=== PATIENT | female | born 1985 | race Hispanic/Latino ===

== ENCOUNTER 2016-09-21 21:47 | Outpatient (CLI) | payer OTHER ==
[~2016-09-21] VITALS: Ht 162.6 cm; Wt 107.2 kg
[~2016-09-21 21:47] MED LIST: FLAG500T PO
[2016-09-21 21:54] VITALS: BP 121/63
[2016-09-22] MEDS ORDERED: PRENTAB9 PO (01:00)
== END 2016-09-21 23:49 | disposition home or self-care (01) ==
LOC: M LDO 21:47
PROVIDERS: ATTEND Specialist
DX: O98.513 Other viral diseases complicating pregnancy, third trimester (principal); Z3A.32 32 weeks gestation of pregnancy

== ENCOUNTER 2016-09-29 13:07 | Outpatient (CLI) | payer OTHER ==
[~2016-09-29] VITALS: Ht 162.6 cm; Wt 104.0 kg
[~2016-09-29 13:07] MED LIST changes: +PRENTAB9 PO
[2016-09-29 13:18] VITALS: BP 89/50
[2016-09-29 13:25] VITALS: BP 108/66
[2016-09-29] MEDS ORDERED: LACTATED RINGER'S 1000 ML IV STA (13:35)
[2016-09-29] MEDS ORDERED: LR 1,000 ML IV SCH (13:35)
[2016-09-29] MEDS ORDERED: PROMETHAZINE INJ 25 MG/ML VIAL (J2550) IV PRN (13:45)
[2016-09-29 14:03] VITALS: BP 107/57
[2016-09-29 15:52] VITALS: BP 97/50
[2016-09-29 17:27] VITALS: BP 101/48
== END 2016-09-29 17:50 | disposition home or self-care (01) ==
LOC: M LDO 13:07
PROVIDERS: ATTEND Obstetrics & Gynecology
DX: O21.8 Other vomiting complicating pregnancy (principal); Z3A.32 32 weeks gestation of pregnancy

== ENCOUNTER 2016-12-25 21:54 | Emergency (ER) | payer OTHER ==
[~2016-12-25] VITALS: Ht 162.6 cm; Wt 98.9 kg
[2016-12-25 21:55] VITALS: BP 110/65
[2016-12-25] MEDS ORDERED: TYLE325T5 PO (22:07)
== END 2016-12-25 23:23 | disposition left against medical advice (07) ==
LOC: M ED 23:10
DX: N64.9 Disorder of breast, unspecified (principal); Z53.21 Procedure and treatment not carried out due to patient leaving prior to being seen by health care provider

== ENCOUNTER → 2017-01-10 | Outpatient (REF) | payer OTHER ==
[~2017-01-10] MED LIST changes: +TYLE325T5 PO
== END ==
LOC: M LAB REF 17:34
PROVIDERS: ATTEND Physician Assistant Medical
DX: Z01.419 Encounter for gynecological examination (general) (routine) without abnormal findings (principal); Z11.51 Encounter for screening for human papillomavirus (HPV)